=== PATIENT | male | born 1980 | race Two or more races ===

== ENCOUNTER → 2021-07-04 | Emergency (ER) | payer OTHER | END | disposition home or self-care (01) | LOC: ER 19:02 | DX: L97.828 Non-pressure chronic ulcer of other part of left lower leg with other specified severity (principal) ==

== ENCOUNTER 2021-07-08 21:50 | Emergency (ER) | payer OTHER ==
[~2021-07-08] VITALS: Ht 172.7 cm; Wt 93.4 kg
== END 2021-07-09 00:05 | disposition home or self-care (01) ==
LOC: ER 21:50
DX: L97.329 Non-pressure chronic ulcer of left ankle with unspecified severity (principal)

== ENCOUNTER 2021-07-28 07:14 | Outpatient (CLI) | payer OTHER | END 2021-07-28 07:19 | disposition home or self-care (01) | LOC: LAB 07:14 | DX: E03.9 Hypothyroidism, unspecified (principal); E66.09 Other obesity due to excess calories; I11.9 Hypertensive heart disease without heart failure; K40.91 Unilateral inguinal hernia, without obstruction or gangrene, recurrent ==

== ENCOUNTER 2021-07-29 07:36 | Outpatient (CLI) | payer OTHER | END 2021-07-29 10:03 | disposition home or self-care (01) | LOC: TOM 07:36 | DX: K40.91 Unilateral inguinal hernia, without obstruction or gangrene, recurrent (principal) ==

== ENCOUNTER 2021-08-13 11:46 | Outpatient (CLI) | payer OTHER | END 2021-08-13 12:01 | disposition home or self-care (01) | LOC: SONOGRAMA 11:46 | PROVIDERS: ATTEND Surgery | DX: K40.20 Bilateral inguinal hernia, without obstruction or gangrene, not specified as recurrent (principal) ==

== ENCOUNTER 2021-09-02 07:28 | Outpatient (CLI) | payer OTHER | END 2021-09-02 07:30 | disposition home or self-care (01) | LOC: NUCLEAR 07:28 | DX: I73.9 Peripheral vascular disease, unspecified (principal) ==

== ENCOUNTER → 2021-09-22 06:31 | Outpatient (CLI) | payer OTHER | END | disposition home or self-care (01) | LOC: LAB 06:31 | PROVIDERS: ATTEND Surgery | DX: Z01.811 Encounter for preprocedural respiratory examination (principal); K40.31 Unilateral inguinal hernia, with obstruction, without gangrene, recurrent; Z01.812 Encounter for preprocedural laboratory examination ==

== ENCOUNTER 2021-10-05 06:21 | Day surgery (SDC) | payer OTHER ==
[~2021-10-05] VITALS: Ht 177.8 cm; Wt 85.7 kg
== END 2021-10-05 14:30 | disposition home or self-care (01) ==
LOC: CIR.AMB 06:21
PROVIDERS: ATTEND Surgery
DX: K40.31 Unilateral inguinal hernia, with obstruction, without gangrene, recurrent (principal); Z20.822 Contact with and (suspected) exposure to COVID-19; E78.00 Pure hypercholesterolemia, unspecified